=== PATIENT | female | born 1955 | race Caucasian/White ===

== ENCOUNTER 2018-06-22 07:48 | Emergency (ER) | payer OTHER ==
--- NOTE | 2018-06-22 08:29 | RAD REPORT ---
EXAM DESCRIPTION: CT - Head Brain Wo Cont - 06/22/2018 8:22 am CLINICAL HISTORY: Fall, head injury, posterior head laceration COMPARISON: None. TECHNIQUE: Axial 5 mm thick images of the head were obtained without IV contrast. All CT scans are performed using dose optimization technique as appropriate and may include automated exposure control or mA/KV adjustment according to patient size. FINDINGS: No intracranial hemorrhage, mass, edema or shift of mid-line structures. No acute infarcti on changes seen. Patient has mild atrophy with ventricles in proportion to the volume loss. Patient h as prominent chronic ischemic change greater than typically seen at this age. Physiologic and arteria l calcifications are present. Mastoid air cells are clear. Air-fluid levels present in the right maxillary sinus. This is likely ac kathleen sinusitis. There is no history to indicate right-sided facial trauma. Moderate-sized posterior left scalp hematoma is present. Underlying bone is intact. No foreign body. IMPRESSION: No hemorrhage or acute intracranial finding. Mild atrophy and advanced for age chronic ischemic changes are present. Chronic ischemic change can mask acute CVA. Follow-up MR imaging could be performed if the patient's fall was triggered by an ischemic event. Right maxillary acute sinusitis. Moderate-sized posterior left scalp hematoma. Underlying bone is intact.
[2018-06-22] MEDS ORDERED: TETANUS & DIPHTHERIA TOX,ADULT 0.5 ML VIAL ONE (09:02)
[2018-06-22] MEDS ORDERED: LIDOCAINE 1% W/EPI 1:100,000 MDV 50 ML VIAL ONE (09:30)
--- NOTE | 2018-06-22 10:17 | ER ---
Nurse's Notes [facility] Name: Wilma Hoyt Age: 63 yrs Sex: Female : 1955 Arrival Date: 06/22/2018 Time: 07:51 Bed 13 Private MD: Kash Isaac Diagnosis: Laceration without foreign body of scalp;Superficial injury of head Presentation: 06/22 08:11 Presenting complaint: Patient states: I tripped on my bathroom rug and fell backwards." ph Pt reports hitting back of head, denies LOC or other injury, also denies use of blood thinners, laceration noted to L occipital area, pt denies N/V or dizziness. Care prior to arrival: None. Mechanism of Injury: Fall from standing position. Trauma event details: Injury occurred in the [facility], Injury occurred: at home. Injury occurred: June 22, 2018. 08:11 Acuity: BILL 4 ph 08:11 Method Of Arrival: Ambulatory ph 08:19 Transition of care: patient was not received from another setting of care. Onset of ph symptoms was June 22, 2018. Risk Assessment: Do you want to hurt yourself or someone else? Patient reports no desire to harm self or others. Initial Sepsis Screen: Does the patient meet any 2 criteria? No. Patient's initial sepsis screen is negative. Does the patient have a suspected source of infection? No. Patient's initial sepsis screen is negative. Trauma Activation: Not Applicable Physician: ED Physician; Name: ; Notified At: ; Arrived At: Physician: General Surgeon; Name: ; Notified At: ; Arrived At: Physician: Radiology; Name: ; Notified At: ; Arrived At: Physician: Respiratory; Name: ; Notified At: ; Arrived At: Physician: Lab; Name: ; Notified At: ; Arrived At: Historical: - Allergies: 08:15 No Known Allergies; ph - Home Meds: 08:15 None [Active]; ph - PMHx: 08:15 None; ph - PSHx: 08:15 Knee surgery; Hysterectomy; ph - Immunization history: Last tetanus immunization: unknown. - Social history:: Smoking status: Patient/guardian denies using tobacco. - Ebola Screening: : No symptoms or risks identified at this time. Screenin:19 Abuse screen: Denies threats or abuse. Denies injuries from another. Nutritional ph screening: No deficits noted. Tuberculosis screening: No symptoms or risk factors identified. Fall Risk Fall in past 12 months (25 points). No secondary diagnosis (0 pts). No IV (0 pts). Ambulatory Aid- None/Bed Rest/Nurse Assist (0 pts). Gait- Normal/Bed Rest/Wheelchair (0 pts) Mental Status- Oriented to own ability (0 pts). Total Rivera Fall Scale indicates Low Risk Score (25-44 pts). Fall prevention measures have been instituted. Primary Survey: 08:16 NO uncontrolled hemorrhage observed. A: The patient is alert. Airway: patent, No ph supplemental oxygen in use on arrival. Oral cavity: clear, Trachea midline. Breathing/Chest: Respiratory pattern: regular, Respiratory effort: spontaneous, unlabored. Circulation: Skin color: pink, Skin temperature: warm, dry. Disability Alert. Exposure/Environment: There is evidence of uncontrolled external hemorrhage. Provider notified immediately. Methods to control bleeding applied. Obvious injury(ies) are noted at this time: laceration to L occipital area. 10:30 Reassessment Breathing/Chest Respiratory pattern Regular Respiratory effort Spontaneous ph Unlabored Disability Alert. Secondary Survey: 08:17 HEENT: Head Other laceration noted to L occipital area. ph Assessment: 08:20 General: Appears in no apparent distress. comfortable, slender, well groomed, Behavior ph is calm, cooperative, appropriate for age. Pain: Complains of pain in left side of the back of head. Neuro: Level of Consciousness is awake, alert, obeys commands, Oriented to person, place, time, situation, Reports headache Denies blurred vision dizziness. Cardiovascular: Capillary refill < 3 seconds in bilateral fingers Patient's skin is warm and dry. Respiratory: Airway is patent Respiratory effort is even, unlabored, Respiratory pattern is regular, symmetrical. GI: Patient currently denies nausea, vomiting. Derm: Skin is healthy with good turgor, Skin is pink, warm \\T\\ dry. Musculoskeletal: Circulation, motion, and sensation intact. Range of motion: intact in all extremities. 09:02 Reassessment: Patient appears in no apparent distress at this time. Patient and/or ph family updated on plan of care and expected duration. Pain level reassessed. Patient is alert, oriented x 3, equal unlabored respirations, skin warm/dry/pink. Injury Description: Head injury sustained to left side of the back of head Laceration is superficial. 10:00 Reassessment: Patient appears in no apparent distress at this time. Patient and/or ph family updated on plan of care and expected duration. Pain level reassessed. Patient is alert, oriented x 3, equal unlabored respirations, skin warm/dry/pink. Vital Signs: 08:17 BP 118 / 86; Pulse 84; Resp 18; Temp 98.4; Pulse Ox 100% on R/A; Pain 4/10; ph 09:05 BP 113 / 99; Pulse 78; Resp 18; Temp 98.0; Pulse Ox 98% on R/A; ph Lequire Coma Score: 08:17 Eye Response: spontaneous(4). Verbal Response: oriented(5). Motor Response: obeys ph commands(6). Total: 15. 09:05 Eye Response: spontaneous(4). Verbal Response: oriented(5). Motor Response: obeys ph commands(6). Total: 15. Trauma Score (Adult): 08:17 Eye Response: spontaneous(1); Verbal Response: oriented(1); Motor Response: obeys ph commands(2); Systolic BP: > 89 mm Hg(4); Respiratory Rate: 10 to 29 per min(4); Priscila Score: 15; Trauma Score: 12 09:05 Eye Response: spontaneous(1); Verbal Response: oriented(1); Motor Response: obeys ph commands(2); Systolic BP: > 89 mm Hg(4); Respiratory Rate: 10 to 29 per min(4); Priscila Score: 15; Trauma Score: 12 ED Course: 07:51 Patient arrived in ED. mr 07:52 Kash Isaac MD is Private Physician. mr 08:02 Lucas Venegas NP is PHCP. pm1 08:02 Tyrell Davies MD is Attending Physician. pm1 08:11 Vanessa Sims, NICKY is Primary Nurse. ph 08:15 Triage completed. ph 08:19 Arm band placed on. ph 08:20 Patient has correct armband on for positive identification. Bed in low position. Call ph light in reach. Side rails up X 1. Pulse ox on. NIBP on. 08:20 Patient maintains SpO2 saturation greater than 95% on room air. Thermoregulation: warm ph blanket given to patient. 08:21 CT completed. Patient tolerated procedure well. Patient moved to CT via wheelchair. sw Patient moved back from CT. 08:22 CT Head Brain wo Cont In Process Unspecified. EDMS 09:05 Patient did not have IV access during this emergency room visit. ph 10:37 No provider procedures requiring assistance completed. ph Administered Medications: 09:01 Drug: Tetanus-Diphtheria Toxoid Adult 0.5 ml {Colleter: [employer]. Exp: ph 04/26/2020. Lot #: [id number]. } Route: IM; Site: left deltoid; 09:40 Follow up: Response: No adverse reaction ph Intake: 08:17 PO: 0ml; Total: 0ml. ph 09:05 PO: 0ml; Total: 0ml. ph Output: 08:17 Urine: 0ml; Total: 0ml. ph 09:05 Urine: 0ml; Total: 0ml. ph Outcome: 10:16 Discharge ordered by MD. pm1 10:37 Patient left the ED. ph 10:37 Discharged to home ambulatory. ph 10:37 Condition: good 10:37 Discharge instructions given to patient, Instructed on discharge instructions, follow up and referral plans. Demonstrated understanding of instructions, follow-up care, wound care. 10:37 Patient's length of stay was not longer than 2 hours. ph Signatures: Dispatcher [employer] EDIA Jessy Romo Patricia, RN RN ph Karina Ortiz Patrick, DAMARIS BEATER OUT LEVELING MACHINE pm1
--- NOTE | 2018-06-22 10:17 | EDPHYS ---
Physician Documentation [facility] Name: Wilma Hoyt Age: 63 yrs Sex: Female : 1955 Arrival Date: 06/22/2018 Time: 07:51 Bed 13 Private MD: Kash Isaac ED Physician Tyrell Davies HPI: 06/22 08:09 This 63 yrs old Female presents to ER via Unassigned with complaints of Fall pm1 Injury, Laceration To Head. 08:09 Details of fall: The patient fell from an upright position, while standing. Onset: The pm1 symptoms/episode began/occurred just prior to arrival. Associated injuries: The patient sustained injury to the head, laceration. Severity of symptoms: in the emergency department the symptoms. The patient has not experienced similar symptoms in the past. The patient has been recently seen by a physician: with different complaint(s), was given a prescription for antibiotics, cyst on right shoulder. Patient slipped in the bathroom and struck the back of her head. No LOC or neck pain. Presents with headache and laceration to back of head. Historical: - Allergies: 08:15 No Known Allergies; ph - Home Meds: 08:15 None [Active]; ph - PMHx: 08:15 None; ph - PSHx: 08:15 Knee surgery; Hysterectomy; ph - Immunization history: Last tetanus immunization: unknown. - Social history:: Smoking status: Patient/guardian denies using tobacco. - Ebola Screening: : No symptoms or risks identified at this time. ROS: 08:09 Constitutional: Negative for fever, chills, and weight loss, Eyes: Negative for injury, pm1 pain, redness, and discharge, ENT: Negative for injury, pain, and discharge, Neck: Negative for injury, pain, and swelling, Cardiovascular: Negative for chest pain, palpitations, and edema, Respiratory: Negative for shortness of breath, cough, wheezing, and pleuritic chest pain, Abdomen/GI: Negative for abdominal pain, nausea, vomiting, diarrhea, and constipation, Back: Negative for injury and pain, : Negative for injury, bleeding, discharge, and swelling, MS/Extremity: Negative for injury and deformity. 08:09 Skin: Positive for laceration(s), of the left parietal area. 08:09 Neuro: Positive for headache, Negative for loss of consciousness, numbness, tingling, weakness. Exam: 08:09 Constitutional: This is a well developed, well nourished patient who is awake, alert, pm1 and in no acute distress. Eyes: Pupils equal round and reactive to light, extra-ocular motions intact. Lids and lashes normal. Conjunctiva and sclera are non-icteric and not injected. Cornea within normal limits. Periorbital areas with no swelling, redness, or edema. ENT: Nares patent. No nasal discharge, no septal abnormalities noted. Tympanic membranes are normal and external auditory canals are clear. Oropharynx with no redness, swelling, or masses, exudates, or evidence of obstruction, uvula midline. Mucous membranes moist. Neck: Trachea midline, no thyromegaly or masses palpated, and no cervical lymphadenopathy. Supple, full range of motion without nuchal rigidity, or vertebral point tenderness. No Meningismus. Chest/axilla: Normal chest wall appearance and motion. Nontender with no deformity. No lesions are appreciated. Cardiovascular: Regular rate and rhythm with a normal S1 and S2. No gallops, murmurs, or rubs. Normal PMI, no JVD. No pulse deficits. 08:09 Respiratory: Lungs have equal breath sounds bilaterally, clear to auscultation and percussion. No rales, rhonchi or wheezes noted. No increased work of breathing, no retractions or nasal flaring. Abdomen/GI: Soft, non-tender, with normal bowel sounds. No distension or tympany. No guarding or rebound. No evidence of tenderness throughout. Back: No spinal tenderness. No costovertebral tenderness. Full range of motion. Skin: Warm, dry with normal turgor. Normal color with no rashes, no lesions, and no evidence of cellulitis. MS/ Extremity: Pulses equal, no cyanosis. Neurovascular intact. Full, normal range of motion. 08:09 Head/face: Exam is negative for you signs, deformity, raccoon eyes, Noted is no obvious of injury or deformity except a laceration(s), that is linear, of the left side of the back of head. 08:09 Neuro: Orientation: is normal, Motor: is normal, moves all fours, Gait: is steady, at a normal pace, without difficulty. Vital Signs: 08:17 BP 118 / 86; Pulse 84; Resp 18; Temp 98.4; Pulse Ox 100% on R/A; Pain 4/10; ph 09:05 BP 113 / 99; Pulse 78; Resp 18; Temp 98.0; Pulse Ox 98% on R/A; ph Priscila Coma Score: 08:17 Eye Response: spontaneous(4). Verbal Response: oriented(5). Motor Response: obeys ph commands(6). Total: 15. 09:05 Eye Response: spontaneous(4). Verbal Response: oriented(5). Motor Response: obeys ph commands(6). Total: 15. Trauma Score (Adult): 08:17 Eye Response: spontaneous(1); Verbal Response: oriented(1); Motor Response: obeys ph commands(2); Systolic BP: > 89 mm Hg(4); Respiratory Rate: 10 to 29 per min(4); Priscila Score: 15; Trauma Score: 12 09:05 Eye Response: spontaneous(1); Verbal Response: oriented(1); Motor Response: obeys ph commands(2); Systolic BP: > 89 mm Hg(4); Respiratory Rate: 10 to 29 per min(4); Priscila Score: 15; Trauma Score: 12 Laceration: 11:38 Wound Repair of 1.5cm ( 0.6in ) subcutaneous laceration to left side of the back of pm1 head. Irregularly shaped.. Distal neuro/vascular/tendon intact. Anesthesia: Local anesthetic administered with 3 mls of 1% lidocaine w/ Epi. Wound prep: Extensive cleansing with hibiclenz by al, Wound irrigation with saline, Wound explored extensively, Copious irrigation. Skin closed with 5 1-0 Jasmin using staple gun. Patient tolerated well. MDM: 08:04 Patient medically screened. pm1 10:13 Data reviewed: vital signs. Data interpreted: Pulse oximetry: on room air is 98 %. pm1 Interpretation: normal. Counseling: I had a detailed discussion with the patient and/or guardian regarding: the historical points, exam findings, and any diagnostic results supporting the discharge/admit diagnosis, radiology results, the need for outpatient follow up, to return to the emergency department if symptoms worsen or persist or if there are any questions or concerns that arise at home. 06/22 08:09 Order name: CT Head Brain wo Cont; Complete Time: 08:47 pm1 06/22 09:17 Order name: Prolene, Sutures; Complete Time: 09:41 pm1 06/22 09:17 Order name: Dressing - Wound; Complete Time: 09:40 pm1 06/22 09:17 Order name: Gloves, Sterile; Complete Time: 09:40 pm1 06/22 09:17 Order name: Setup Suture Tray; Complete Time: 09:40 pm1 Administered Medications: 09:01 Drug: Tetanus-Diphtheria Toxoid Adult 0.5 ml {[employer]: [employer]. Exp: ph 04/26/2020. Lot #: [id number]. } Route: IM; Site: left deltoid; 09:40 Follow up: Response: No adverse reaction ph Disposition: 06/22/18 10:16 Discharged to Home. Impression: Laceration without foreign body of scalp, Superficial injury of head. - Condition is Stable. - Discharge Instructions: Head Injury, Adult, Laceration Care, Adult, Sinusitis, Adult, Stitches, [place], or Adhesive Wound Closure. - Work release form, Medication Reconciliation Form, Thank You Letter, Antibiotic Education, Prescription Opioid Use form. - Follow up: Emergency Department; When: As needed; Reason: Worsening of condition. Follow up: Private Physician; When: 10 - 14 days; Reason: Recheck today's complaints, Continuance of care, Staple/Suture removal, Re-evaluation by your physician. - Problem is new. - Symptoms have improved. Addendum: 06/25/2018 08:19 Co-signature as Attending Physician, Tyrell Davies MD I agree with the assessment and k dr plan of care. Signatures: Dispatcher [employer] EDTyrell Rock MD MD kdr Vanessa Sims RN RN ph Lucas Venegas, DAMARIS DOCUMENTATION SPEC pm1 Corrections: (The following items were deleted from the chart) 06/22 10:37 10:16 06/22/2018 10:16 Discharged to Home. Impression: Laceration without foreign body ph of scalp; Superficial injury of head. Condition is Stable. Forms are Medication Reconciliation Form, Thank You Letter, Antibiotic Education, Prescription Opioid Use. Follow up: Emergency Department; When: As needed; Reason: Worsening of condition. Follow up: Private Physician; When: 10 - 14 days; Reason: Recheck today's complaints, Continuance of care, Staple/Suture removal, Re-evaluation by your physician. Problem is new. Symptoms have improved. pm1
[2018-06-22 10:46] VITALS: BP 113/99; TEMP 98; O2SAT 98
== END 2018-06-22 10:37 | disposition home or self-care (01) ==
LOC: ER 07:48
PROC: 0JQ00ZZ Repair Scalp Subcutaneous Tissue and Fascia, Open Approach (ICD-10-PCS; principal; 2018-06-22)
DX: S00.90XA Unspecified superficial injury of unspecified part of head, initial encounter (principal); S01.01XA Laceration without foreign body of scalp, initial encounter; W01.198A Fall on same level from slipping, tripping and stumbling with subsequent striking against other object, initial encounter; Y93.89 Activity, other specified; Y92.002 Bathroom of unspecified non-institutional (private) residence as the place of occurrence of the external cause; Z23 Encounter for immunization
CPT/HCPCS: 70450; 90714; 99284